=== PATIENT | female | born 1985 | race African-American/Black ===

== ENCOUNTER 2022-08-11 10:04 | Emergency (ER) | payer MEDICAID ==
[~2022-08-11] VITALS: Ht 170.2 cm; Wt 127.0 kg
[2022-08-11 10:35] LABS: BASOPHILS % 0.7 % (0.0-2.0); EOSINOPHILS % 1.2 % (0.0-5.0); HEMATOCRIT. 39.2 % (36.0-48.0); HEMOGLOBIN. 13.2 g/dL (12.0-16.0); LYMPHOCYTES % 43.1 % (20.0-50.0); MEAN CORPUSCULAR HEMOGLOBIN 29.2 pg (28.0-32.0); MEAN CORPUSCULAR VOLUME 86.7 fL (81.0-99.0); MEAN PLATELET VOLUME 6.8 fl (7.4-10.4); MONOCYTES % 8.5 % (2.0-8.0); NEUTROPHILS % 46.5 % (40.0-76.0); PLATELET 289 x1000/uL (130-400); RED BLOOD CELL COUNT 4.52 mill/uL (4.2-5.4); RED CELL DISTRIBUTION WIDTH 13.5 % (11.6-14.6)
[2022-08-11 10:43] LABS: CHLORIDE 109 mEq/L (98-107)
[2022-08-11 11:05] LABS: HCG SCREEN NEGATIVE
[2022-08-11 11:30] VITALS: BP 138/96
== END 2022-08-11 12:21 | disposition home or self-care (01) ==
LOC: ER 10:04
DX: R07.89 Other chest pain (principal); I10 Essential (primary) hypertension
CPT/HCPCS: 36415; 71045; 80053; 83880; 84484; 84703; 85025; 85379; 93005; 99285